=== PATIENT | female | born 1985 | race Caucasian/White ===

== ENCOUNTER 2022-04-23 13:07 | Emergency (ER) | payer OTHER ==
[~2022-04-23] VITALS: Ht 165.1 cm; Wt 59.0 kg
[2022-04-23] MEDS ORDERED: ACETAMINOPHEN ES 500 MG TABLET PO ONE (15:00)
[2022-04-23] MEDS ORDERED: IBUPROFEN 600 MG TABLET PO ONE (15:00)
[2022-04-23] MEDS ORDERED: ACETAMINOPHEN ES 500 MG TABLET ONE (15:06)
[2022-04-23] MEDS ORDERED: IBUPROFEN 600 MG TABLET ONE (15:06)
[2022-04-23] MEDS ORDERED: IBUP-1955 PO (16:46)
[2022-04-23] MEDS ORDERED: ACET-73 PO (16:46)
--- NOTE | 2022-04-23 17:31 | NUR ---
Gave pt RX and d/c instructions, pt verbalized understanding.
== END 2022-04-23 17:32 | disposition home or self-care (01) ==
LOC: ER 13:07
DX: U07.1 COVID-19 (principal); S42.252D Displaced fracture of greater tuberosity of left humerus, subsequent encounter for fracture with routine healing; S42.215D Unspecified nondisplaced fracture of surgical neck of left humerus, subsequent encounter for fracture with routine healing; W19.XXXD Unspecified fall, subsequent encounter
CPT/HCPCS: 71045; 73030; 73060; 73080; A4663; A9150